=== PATIENT | female | born 1950 | race Caucasian/White ===

== ENCOUNTER 2017-01-30 22:18 | Emergency (ER) | payer MEDICARE, BC ==
--- NOTE | 2017-01-30 22:42 | Emergency Department Record ---
History of Present Illness - General Chief Complaint: Laceration(s) Stated Complaint: LAC ON L RING FINGER Time Seen by Provider: 01/30/17 22:40 Source: Patient Mode of Arrival: Ambulatory Limitations: No limitations - History of Present Illness Initial Commments: 67 yo female presents to ED with a CC of a laceration to the left ring finger that resulted from a crush injury when her finger was sandwiched between two window panes. Patient denies other injury, but was concerned that she may need stitches. Patient reports that her tetanus is UTD. Onset/Timin -: Hour(s) Extremity Location: Left: Hand Place: Home Context: Accidental, Crush injury Associated Symptoms: None Treatments Prior to Arrival: Bandage - Bronson Coma Scale Eye Response: (4) Open spontaneously Motor Response: (6) Obeys commands Verbal Response: (5) Oriented Brando Total: 15 - Related Data Home Medications Medication Instructions Recorded Confirmed Last Taken Acetaminophen [Tylenol] 325 mg PO tab 04/18/16 Unknown Cholecalciferol (Vitamin D3) 2,000 unit PO cap 04/18/16 Unknown [Vitamin D3] Dorzolamide HCl/Timolol Maleat 1 drop OP BID drop 04/18/16 Unknown [Cosopt Eye Drops] Multivitamin [Daily Value] 1 each PO tab 04/18/16 Unknown Omeprazole Magnesium [Prilosec Otc] 20 mg PO QD tab.dr 04/18/16 Unknown Vitamin B Complex 2 each PO tab 04/18/16 Unknown Allergies Allergy/AdvReac Type Severity Reaction Status Date / Time NSAIDS (Non-Steroidal Allergy Intermediate VOMITING Unverified 04/18/16 16:11 Anti-Inflamma Latex, Natural Rubber AdvReac SKIN Verified 01/30/17 22:26 IRRITATION Travel Screening - Travel/Exposure Within Last 30 Days Have you traveled within the last 30 days?: No - Travel/Exposure Within Last Year Have you traveled outside the [place] in the last year?: No - Additonal Travel Details Have you been exposed to anyone with a communicable illness?: No Review of Systems Constitutional: Denies: Chills, Fever, Malaise, Night sweats Eyes: Denies: Eye discharge, Eye pain ENT: Denies: Congestion, Ear pain, Epistaxis Respiratory: Denies: Cough, Dyspnea Cardiovascular: Denies: Chest pain, Dyspnea on exertion Endocrine: Denies: Fatigue, Heat or cold intolerance Gastrointestinal: Denies: Abdominal pain, Nausea, Vomiting Genitourinary: Denies: Dysuria, Frequency, Hematuria, Incontinence Musculoskeletal: Denies: Arthralgia, Back pain, Gout, Joint swelling, Other Skin: Reports: Other (finger laceration). Denies: Bruising, Change in color Neurological: Denies: Abnormal gait, Confusion, Headache, Seizure Psychiatric: Denies: Anxiety Hematological/Lymphatic: Denies: Anemia, Blood Clots Past Medical History - SOCIAL HISTORY Smoking Status: Never smoker Alcohol Use: Rare Drug Use: None - RESPIRATORY Hx Respiratory Disorders: No - CARDIOVASCULAR Hx Cardio Disorders: No - NEURO Hx Neuro Disorders: No - GI Hx GI Disorders: Yes Hx Diverticulitis: Yes Hx Reflux: Yes - Hx Genitourinary Disorders: No - ENDOCRINE Hx Endocrine Disorders: No - MUSCULOSKELETAL Hx Musculoskeletal Disorders: Yes Hx Arthritis: Yes - PSYCH Hx Psych Problems: No - HEMATOLOGY/ONCOLOGY Hx Hematology/Oncology Disorders: No Family Medical History Any Significant Family History?: Yes Family Hx Comment (NOT TO BE USED IN PLACE OF ITEMS BELOW): aortic stenosis in father Hx Stroke: Mother Physical Exam - General General Appearance: Alert, Oriented x3, Cooperative, No acute distress Limitations: No limitations - Head Head exam: Atraumatic, Normocephalic, Normal inspection Head exam detail: negative: Abrasion, Contusion, Ivey's sign, General tenderness, Hematoma, Laceration - Eye Eye exam: Normal appearance. negative: Conjunctival injection, Periorbital swelling, Periorbital tenderness, Scleral icterus - ENT Ear exam: negative: Auricular hematoma, Auricular trauma Nasal Exam: negative: Active bleeding, Discharge, Dried blood, Foreign body Mouth exam: negative: Drooling, Laceration, Muffled voice, Tongue elevation - Neck Neck exam: Normal inspection. negative: Meningismus, Tenderness - Respiratory Respiratory exam: Normal lung sounds bilaterally. negative: Rales, Respiratory distress, Rhonchi, Stridor - Cardiovascular Cardiovascular Exam: Regular rate, Normal rhythm, Normal heart sounds - GI/Abdominal GI/Abdominal exam: Soft. negative: Rebound, Rigid, Tenderness - Rectal Rectal exam: Deferred - exam: Deferred - Extremities Extremities exam: Other (1.0 laceration adjacent to the lateral aspect of the left ring finger nail, no bleeding present, no evidence of tendon laceration on examination.). negative: Calf tenderness, Pedal edema, Tenderness - Back Back exam: Reports: Normal inspection. Denies: CVA tenderness (R), CVA tenderness (L) - Neurological Neurological exam: Alert, Normal gait, Oriented X3 - Psychiatric Psychiatric exam: Normal affect, Normal mood - Skin Skin exam: Normal color. negative: Abrasion Type of lesion: negative: abrasion Course Vital Signs 01/30/17 22:25 Temperature 97.5 F L Pulse Rate [ 78 Pulse Ox Probe] Respiratory 16 Rate Blood Pressure 163/73 [Right Arm] Pulse Ox 97 - Reevaluation(s) Reevaluation #1: 01/30/17 22:47 Laceration to the left index finger is adjacent to the nail, approximately 1.0 cm in length. Patient reports previous allergic-type reaction to both Dermabond and steri-strips. Sutures are not felt to be beneficial as the laceration is along the lateral border of the finger nail and sutures would involve going through the nail. Patient was advised to perform dressing changes for the next several days and allow the wound to heal by secondary intention. Patient agrees with the plan as described, and appears stable for discharge at this time. Disposition Disposition: Discharge Clinical Impression: Finger laceration Qualifiers: Encounter type: initial encounter Qualified Code(s): S61.219A - Laceration without foreign body of unspecified finger without damage to nail, initial encounter Disposition: Home, Self-Care Condition: (2) Stable Instructions: Laceration (ED) Additional Instructions: Return to ED if your symptoms worsen or if you have any concerns. Dressing changes daily. Follow-up with your family doctor in 3-5 days directed. Forms: Patient Portal Access Time of Disposition: 22:42
== END 2017-01-30 23:01 | disposition home or self-care (01) ==
LOC: ER 22:18
DX: S61.215A Laceration without foreign body of left ring finger without damage to nail, initial encounter (principal); W23.0XXA Caught, crushed, jammed, or pinched between moving objects, initial encounter; Y92.009 Unspecified place in unspecified non-institutional (private) residence as the place of occurrence of the external cause
CPT/HCPCS: 99282

== ENCOUNTER 2018-07-12 14:21 | Emergency (ER) | payer MEDICARE, BC ==
[2018-07-12] MEDS ORDERED: METHYLPREDNISOLONE PF 125MG/VIAL IVP ONE (14:45)
[2018-07-12] MEDS ORDERED: DIPHENHYDRAMINE HCL 50 MG/ML VIAL IVP ONE (14:45)
--- NOTE | 2018-07-12 14:52 | Emergency Department Record ---
History of Present Illness - General Chief complaint: Bite Insect/other Stated complaint: SEVERAL BEE STINGS Time Seen by Provider: 07/12/18 14:39 Source: Patient Mode of Arrival: Ambulatory Limitations: No limitations - History of Present Illness Initial comments: The patient is here due to suffering multiple bee stings about an hour ago. 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 She did take 50 mg of Benadryl. The patient denies any BOBBI, SOB, or trouble swallowing but is having a lot of pain. She has no hx of bee sting allergies. MD complaint: Insect bite/sting, Rash Onset/Timin -: Hour(s) Quality: Burning Consistency: Constant Improves with: None Worsens with: None Context: None Associated symptoms: Denies other symptoms Treatments Prior to Arrival: Benadryl - Related Data Allergies Allergy/AdvReac Type Severity Reaction Status Date / Time NSAIDS (Non-Steroidal Allergy Intermediate VOMITING Verified 07/12/18 14:33 Anti-Inflamma Latex, Natural Rubber AdvReac SKIN Verified 07/12/18 14:33 IRRITATION Travel Screening - Travel/Exposure Within Last 30 Days Have you traveled within the last 30 days?: No Review of Systems Constitutional: Denies: Chills, Fever Eyes: Denies: Eye discharge ENT: Denies: Congestion Respiratory: Denies: Cough, Dyspnea Past Medical History - SOCIAL HISTORY Smoking Status: Never smoker Alcohol Use: None Drug Use: None - RESPIRATORY Hx Respiratory Disorders: No - CARDIOVASCULAR Hx Cardio Disorders: No - NEURO Hx Neuro Disorders: No - GI Hx GI Disorders: Yes Hx Diverticulitis: Yes Hx Reflux: Yes - Hx Genitourinary Disorders: No - ENDOCRINE Hx Endocrine Disorders: No - MUSCULOSKELETAL Hx Musculoskeletal Disorders: Yes Hx Arthritis: Yes - PSYCH Hx Psych Problems: No - HEMATOLOGY/ONCOLOGY Hx Hematology/Oncology Disorders: No Family Medical History Any Significant Family History?: Yes Family Hx Comment (NOT TO BE USED IN PLACE OF ITEMS BELOW): aortic stenosis in father Hx Stroke: Mother Physical Exam - General General Appearance: Alert, Oriented x3, Cooperative, No acute distress - Head Head exam: Atraumatic, Normocephalic, Normal inspection - Eye Eye exam: PERRL, EOMI, Periorbital swelling (There is very mild swelling to the skin under the eyes bilaterally with mild erythema.). negative: Normal appearance - ENT ENT exam: Mucous membranes moist, Normal external ear exam, Normal orophraynx, TM's normal bilaterally. negative: Normal exam Ear exam: Normal external inspection. negative: External canal tenderness Throat exam: Normal inspection. negative: Tonsillar erythema, Tonsillar exudate - Neck Neck exam: Normal inspection, Full ROM. negative: Tenderness - Respiratory Respiratory exam: Normal lung sounds bilaterally. negative: Respiratory distress - Cardiovascular Cardiovascular Exam: Regular rate, Normal rhythm, Normal heart sounds - GI/Abdominal GI/Abdominal exam: Soft, Normal bowel sounds. negative: Tenderness - Extremities Extremities exam: negative: Normal inspection (There is evidence of multiple stings to the hands, face and scalp. There is no significant swelling or rash.) Course Vital Signs 07/12/18 14:32 Pulse Rate [ 86 Pulse Ox Probe] Respiratory 18 Rate Blood Pressure 161/95 [Left Arm] Pulse Ox 96 - Reevaluation(s) Reevaluation #1: The patient is doing better at this time. She denies any itching or any BOBBI or SOB or worsening rash. 07/12/18 15:29 Reevaluation #2: The patient continues to do better with less rash and no BOBBI. She did develop mild to mod chest pressure when she got up to walk to the bathroom. It lasted about 15 minutes and did resolve. We did get and EKG that did not demonstrate any acute ST-T changes. 07/12/18 16:27 Reevaluation #3: The patient is doing a lot better at this time and is having no CP or SOB or BOBBI. Due to the vague chest discomfort earlier I did order cardiac enzymes and they are positive. Due to that I did consult Dr. Donn Salas at [facility] [place] and he agrees with the plan to place the patient on Heparin and transfer to [facility]. 07/12/18 17:19 07/12/18 17:59 Reevaluation #4: I did discuss the case with Dr. Aponte at [facility] [place] and she does accept the patient in transfer. 07/12/18 17:24 Medical Decision Making - Data Complexity MDM Data: Labs Ordered and/or Reviewed, EKG Ordered and/or Reviewed - Lab Data Result diagrams: 07/12/18 16:25 07/12/18 16:25 - EKG Data -: EKG Interpreted by Me EKG: No Acute Changes (Nonspecific T changes anterior and lateral leads. Neg for an acute injury pattern.) Disposition Disposition: Transfer Clinical Impression: Non Q wave myocardial infarction Disposition: Acute Care Hospital Transfer Transfer To: [facility] Reason For Transfer: Cardiology Accepting Physician: Fadi Time Discussed w/Accepting Physician: 17:21 Condition: (2) Stable Forms: Patient Portal Access Time of Disposition: 17:21 Quality - Quality Measures Quality Measures: N/A - Blood Pressure Screening View Details: Yes Does Patient Have Any of the Following: No Blood Pressure Classification: Hypertensive Reading Systolic Measurement: 158 Diastolic Measurement: 94 Screening for High Blood Pressure: < First Hypertensive BP, F/U Documented > [ G8950] First Hypertensive Follow-up Interventions: Referral to alternative/primary care provider.
[2018-07-12 16:35] LABS: HEMATOCRIT 39.1 % (35.0-47.0); HEMOGLOBIN 12.6 gm/dl (11.6-16.0); MEAN CELL VOLUME 86.3 fl (81-97); MEAN CORPUSCULAR HEMOGLOBIN 27.8 pg (27-33); MEAN CORPUSCULAR HGB CONC 32.2 g/dl (32-36); MEAN PLATELET VOLUME 8.8 fl (7.4-10.4); PLATELET COUNT 279 K/uL (130-400); RED BLOOD COUNT 4.53 M/uL (3.80-5.40); RED CELL DISTRIBUTION WIDTH 13.9 % (11.5-14.5); WHITE BLOOD COUNT W/O DIFF 9.3 K/uL (4.2-12.2)
[2018-07-12 16:46] LABS: PLATELET ESTIMATE NORMAL (NORMAL)
[2018-07-12 16:51] LABS: BLOOD UREA NITROGEN 18 mg/dL (8-23); CREATININE 0.6 mg/dL (0.5-0.9); EST GLOMERULAR FILTRATION RATE > 60 mL/min
[2018-07-12 16:54] LABS: GLUCOSE,RANDOM 120 mg/dL (74-109)
[2018-07-12] MEDS ORDERED: ASPIRIN 325 MG TABLET PO ONE (17:07)
[2018-07-12 17:13] LABS: CKMB 9.8 ng/mL (<3.77); CREATINE PHOSPHOKINASE 121 U/L (26-192)
[2018-07-12] MEDS ORDERED: HEPARIN SODIUM 1000 UNIT/1 ML 10ML VIAL IVP ONE (17:17)
[2018-07-12 17:25] LABS: PARTIAL THROMBOPLASTIN TIME 26.7 SECONDS (24.5-39.1)
[2018-07-12] MEDS ORDERED: HEPARIN SODIUM/D5W 25,000 UNITS/500 ML BAG IV SCH (17:30)
--- NOTE | 2018-07-18 07:06 | Emergency Department Record ---
History of Present Illness - General Chief complaint: Bite Insect/other Stated complaint: SEVERAL BEE STINGS Time Seen by Provider: 07/12/18 14:39 Source: Patient Mode of Arrival: Ambulatory Limitations: No limitations - History of Present Illness MD complaint: Insect bite/sting, Rash Onset/Timin -: Hour(s) Quality: Burning Consistency: Constant Improves with: None Worsens with: None Context: None Associated symptoms: Denies other symptoms Treatments Prior to Arrival: Benadryl - Related Data Allergies Allergy/AdvReac Type Severity Reaction Status Date / Time NSAIDS (Non-Steroidal Allergy Intermediate VOMITING Verified 07/12/18 14:33 Anti-Inflamma Latex, Natural Rubber AdvReac SKIN Verified 07/12/18 14:33 IRRITATION Travel Screening - Travel/Exposure Within Last 30 Days Have you traveled within the last 30 days?: No Review of Systems Constitutional: Denies: Chills, Fever Eyes: Denies: Eye discharge ENT: Denies: Congestion Respiratory: Denies: Cough, Dyspnea Cardiovascular: Denies: Arrhythmia, Chest pain Endocrine: Denies: Fatigue Gastrointestinal: Denies: Abdominal pain Genitourinary: Denies: Discharge, Dysuria Musculoskeletal: Denies: Arthralgia Skin: Denies: Bruising Past Medical History - SOCIAL HISTORY Smoking Status: Never smoker Alcohol Use: None Drug Use: None - RESPIRATORY Hx Respiratory Disorders: No - CARDIOVASCULAR Hx Cardio Disorders: No - NEURO Hx Neuro Disorders: No - GI Hx GI Disorders: Yes Hx Diverticulitis: Yes Hx Reflux: Yes - Hx Genitourinary Disorders: No - ENDOCRINE Hx Endocrine Disorders: No - MUSCULOSKELETAL Hx Musculoskeletal Disorders: Yes Hx Arthritis: Yes - PSYCH Hx Psych Problems: No - HEMATOLOGY/ONCOLOGY Hx Hematology/Oncology Disorders: No Family Medical History Any Significant Family History?: Yes Family Hx Comment (NOT TO BE USED IN PLACE OF ITEMS BELOW): aortic stenosis in father Hx Stroke: Mother Physical Exam - General Limitations: No limitations Course Vital Signs 07/12/18 07/12/18 07/12/18 14:32 15:01 16:06 Temperature 97.8 F Pulse Rate Pulse Rate [ 86 89 Pulse Ox Probe] Respiratory 18 18 Rate Blood Pressure Blood Pressure 161/95 158/94 [Left Arm] Pulse Ox 96 95 07/12/18 18:41 Temperature Pulse Rate 96 H Pulse Rate [ Pulse Ox Probe] Respiratory 18 Rate Blood Pressure 157/110 Blood Pressure [Left Arm] Pulse Ox 95 Medical Decision Making - Lab Data Result diagrams: 07/12/18 16:25 07/12/18 16:25 Lab Results 07/12/18 07/12/18 07/12/18 Range/Units 16:25 16:25 16:25 WBC 9.3 (4.2-12.2) K/uL RBC 4.53 (3.80-5.40) M/uL Hgb 12.6 (11.6-16.0) gm/dl Hct 39.1 (35.0-47.0) % MCV 86.3 (81-97) fl MCH 27.8 (27-33) pg MCHC 32.2 (32-36) g/dl RDW 13.9 (11.5-14.5) % Plt Count 279 (130-400) K/uL MPV 8.8 (7.4-10.4) fl Neutrophils % 91.0 H (47-80) % Band Neutrophils % 1.0 (0-5) % Eosinophils % Not Reportable Basophils % Not Reportable Lymphocytes 5.0 L (16-45) % Monocytes 3.0 (0-9) % Platelet Estimate Normal (NORMAL) RBC Morphology Normal PT (9.5-12.1) SECONDS INR APTT (24.5-39.1) SECONDS Sodium 136 (136-145) mmol/L Potassium 3.9 (3.4-4.5) mmol/L Chloride 97 L (98-107) mmol/L Carbon Dioxide 23.0 (22-29) mmol/L Anion Gap 16.0 (7-16) BUN 18 (8-23) mg/dL Creatinine 0.6 (0.5-0.9) mg/dL Estimated GFR > 60 mL/min Random Glucose 120 H (74-109) mg/dL Calcium 8.7 L (8.8-10.2) mg/dL Creatine Kinase 121 Cancelled (26-192) U/L CK-MB (CK-2) 9.8 H (<3.77) ng/mL CK-MB (CK-2) Rel Index 8.00 H Cancelled (0-4) % Troponin T 0.550 H* (0-0.010) ng/mL 07/12/18 07/12/18 Range/Units 16:25 16:35 WBC (4.2-12.2) K/uL RBC (3.80-5.40) M/uL Hgb (11.6-16.0) gm/dl Hct (35.0-47.0) % MCV (81-97) fl MCH (27-33) pg MCHC (32-36) g/dl RDW (11.5-14.5) % Plt Count (130-400) K/uL MPV (7.4-10.4) fl Neutrophils % (47-80) % Band Neutrophils % (0-5) % Eosinophils % Basophils % Lymphocytes (16-45) % Monocytes (0-9) % Platelet Estimate (NORMAL) RBC Morphology PT 10.0 (9.5-12.1) SECONDS INR 1.0 APTT 26.7 (24.5-39.1) SECONDS Sodium (136-145) mmol/L Potassium (3.4-4.5) mmol/L Chloride (98-107) mmol/L Carbon Dioxide (22-29) mmol/L Anion Gap (7-16) BUN (8-23) mg/dL Creatinine (0.5-0.9) mg/dL Estimated GFR mL/min Random Glucose (74-109) mg/dL Calcium (8.8-10.2) mg/dL Creatine Kinase Cancelled (26-192) U/L CK-MB (CK-2) (<3.77) ng/mL CK-MB (CK-2) Rel Index (0-4) % Troponin T (0-0.010) ng/mL Disposition Clinical Impression: Non Q wave myocardial infarction Disposition: Acute Care Hospital Transfer Condition: (2) Stable Forms: Patient Portal Access Quality - Quality Measures Quality Measures: N/A - Blood Pressure Screening View Details: Yes Does Patient Have Any of the Following: No Blood Pressure Classification: Hypertensive Reading Systolic Measurement: 157 Diastolic Measurement: 110 Screening for High Blood Pressure: < First Hypertensive BP, F/U Documented > [ G8950] First Hypertensive Follow-up Interventions: Referral to alternative/primary care provider.
== END 2018-07-12 18:00 | disposition short-term general hospital (02) ==
LOC: ER 14:21
DX: I21.4 Non-ST elevation (NSTEMI) myocardial infarction (principal); T63.441A Toxic effect of venom of bees, accidental (unintentional), initial encounter
CPT/HCPCS: 80048; 82550; 82553; 84484; 85027; 85610; 85730; 93005; 93010; 96365; 96375; 99285; J1200; J2930